=== PATIENT | female | born 1960 | race Two or more races ===

== ENCOUNTER 2021-04-19 01:37 | Inpatient (IN) | payer MEDICAID ==
[~2021-04-19] VITALS: Ht 149.9 cm; Wt 91.2 kg
[~2021-04-19 01:37] MED LIST: ALBUAER3 IN; ALLO100T PO; ATOR20TA PO; CHOL20007 PO; CITA-244 PO; FENO160T8 PO; GABA100C9 PO; HYDR25TA5 PO; INSU1INJ19 SC; LEVO100T3 PO; LOSA-69 PO; METF-370 PO; TRAM50TA2 PO
[2021-04-19] MEDS ORDERED: SODIUM CHLORIDE 0.9% 1,000 ML IV ONE ×2 (03:30→03:45)
[2021-04-19] MEDS ORDERED: NOREPINEPHRINE 8 MG/250ML KIT 250 ML IV ONE (03:42)
[2021-04-19 03:49] LABS: Basophils # (auto) 0.1 10 ^3/uL (0-0.2); Basophils % (auto) 0.4 % (0.0-2.0); Eosinophils # (auto) 0.8 10 ^3/uL (0-0.8); Eosinophils % (auto) 5.1 % (0.0-7.0); Hematocrit 41.3 % (36.0-46.0); Hemoglobin 13.5 g/dL (12.2-16.2); Lymphocytes % (auto) 13.5 % (10.0-50.0); Mean Corpuscular Hemoglobin 30.5 pg (28.0-32.0); Mean Corpuscular Hgb Conc. 32.8 g/dL (32.0-36.0); Mean Corpuscular Volume 92.9 fL (80.0-100.0); Monocytes # (auto) 0.5 10 ^3/uL (0-1.3); Monocytes % (auto) 3.3 % (0.0-12.0); Neutrophils # (auto) 11.5 10 ^3/uL (1.6-8.6); Neutrophils % (auto) 77.7 % (37.0-80.0); Red Blood Cells 4.44 10^6/uL (4.0-5.20); White Blood Cell 14.8 10^3/uL (4.4-10.8)
[2021-04-19] MEDS ORDERED: NOREPINEPHRINE 8 MG/250ML KIT 250 ML IV SCH (04:00)
[2021-04-19] MEDS ORDERED: CEFTRIAXONE SODIUM 2 GM in D5W 5% 50 ML IV ONE (04:00)
[2021-04-19 04:05] LABS: Alanine Aminotransferase 35 U/L (13-56); Albumin 3.3 g/dL (3.4-5.0); Anion Gap 16 (5-15); Aspartate Aminotransferase 30 U/L (15-37); BUN/Creatinine Ratio 15.4; Calcium 10.5 mg/dL (8.5-10.1); Carbon Dioxide 26 mmol/L (21-32); Chloride 91 mmol/L (98-107); GFR African American 10 mL/min; GFR Non-African American 9 mL/min; Glucose 134 mg/dL (74-106); Lipase 298 U/L (73-393); Magnesium 3.1 mg/dL (1.6-2.6); Potassium 3.8 mmol/L (3.5-5.1); Sodium 133 mmol/L (136-145)
[2021-04-19 04:11] LABS: Alkaline Phosphatase 51 U/L (45-117); Bilirubin, Total 0.4 mg/dL (0.2-1.0); Total Protein 7.8 g/dL (6.4-8.2)
[2021-04-19 04:15] LABS: Blood Urea Nitrogen 84 mg/dL (7-18)
[2021-04-19] MEDS ORDERED: VANCOMYCIN 1GM/250ML 250 ML IV ONE ×2 (04:30→11:00)
[2021-04-19] MEDS ORDERED: SODIUM CHLORIDE 0.9% 2,000 ML IV ONE (05:00)
[2021-04-19 05:28] LABS: Urine Bacteria FEW /hpf (None Seen); Urine Blood TRACE /uL (Negative); Urine Hyaline Cast MANY /lpf (0 - 2); Urine Mucus FEW (None Seen); Urine Specific Gravity 1.013 (1.001-1.035); Urine WBC 26 /hpf (0 - 5)
[2021-04-19] MEDS ORDERED: CHOLECALCIFEROL (VITD3) 2,000 UNIT CAP/TAB PO ONE (06:45)
[2021-04-19] MEDS ORDERED: VANCOMYCIN PER PHARMACY 0 MG IV SCH (06:45)
[2021-04-19] MEDS ORDERED: ONDANSETRON HCL 4 MG/2 ML VIAL IV PRN (06:45)
[2021-04-19] MEDS ORDERED: NITROGLYCERIN 0.4 MG SL TAB SL PRN (06:45)
[2021-04-19] MEDS ORDERED: MORPHINE SULFATE INJECTION 2 MG/ML SYRG IV PRN (06:45)
[2021-04-19] MEDS ORDERED: DEXTROSE (50%) 50ML SYRG IV PRN (06:45)
[2021-04-19] MEDS: SODIUM CHLORIDE 0.9% 1,000 ML IV SCH ×2 (07:30→14:45)
[2021-04-19] MEDS: NOREPINEPHRINE 8 MG/250ML KIT 250 ML IV SCH (07:30)
[2021-04-19] MEDS: PIPERACILLIN-TAZOB 2.25GM 50 ML IV SCH ×2 (08:00→16:00)
[2021-04-19 08:53] LABS: Albumin 3.4 g/dL (3.4-5.0); Calcium 10.7 mg/dL (8.5-10.1)
[2021-04-19 08:55] LABS: BUN/Creatinine Ratio 15.8
[2021-04-19 08:57] LABS: Bilirubin, Total 0.5 mg/dL (0.2-1.0); Total Protein 7.8 g/dL (6.4-8.2)
[2021-04-19] MEDS: HEPARIN SODIUM (PORCINE) 5000 UNITS/ML 1ML VIAL SC SCH (09:31)
[2021-04-19] MEDS: CITALOPRAM HYDROBR 20 MG TAB PO SCH (09:37)
[2021-04-19] MEDS: PANTOPRAZOLE 40 MG/10 ML VIAL INJ IV SCH (09:37)
[2021-04-19] MEDS: GABAPENTIN 100 MG CAP PO SCH (09:38)
[2021-04-19] MEDS: InsuLIN REG 1unit/0.01ml Soln (100units/ml) SC SCH ×2 (13:55→18:00)
[2021-04-19] MEDS: ACCU-CHEK COMFORT CURVE STRIP VI SCH ×2 (13:55→18:00)
[2021-04-19] MEDS: SODIUM BICARBONATE 50ML VIAL 50 ML in SOD CHL 0.45% 1,000 ML IV SCH (15:45)
[2021-04-19 17:21] LABS: Protein, Urine 157.5 mg/dL (0.0-11.9)
[2021-04-20] MEDS: PIPERACILLIN-TAZOB 2.25GM 50 ML IV SCH ×3 (00:27→18:18)
[2021-04-20] MEDS: InsuLIN REG 1unit/0.01ml Soln (100units/ml) SC SCH ×4 (00:28→18:27)
[2021-04-20] MEDS: ACCU-CHEK COMFORT CURVE STRIP VI SCH ×4 (00:28→18:25)
[2021-04-20] MEDS: SODIUM BICARBONATE 50ML VIAL 50 ML in SOD CHL 0.45% 1,000 ML IV SCH ×2 (02:15→14:50)
[2021-04-20] MEDS: NOREPINEPHRINE 8 MG/250ML KIT 250 ML IV SCH (05:18)
[2021-04-20 05:35] LABS: Basophils # (auto) 0.1 10 ^3/uL (0-0.2); Basophils % (auto) 0.9 % (0.0-2.0); Eosinophils % (auto) 8.7 % (0.0-7.0); Hematocrit 35.7 % (36.0-46.0); Hemoglobin 11.9 g/dL (12.2-16.2); Lymphocytes # (auto) 3.1 10 ^3/uL (0.4-5.4); Lymphocytes % (auto) 25.7 % (10.0-50.0); Mean Corpuscular Hemoglobin 30.6 pg (28.0-32.0); Mean Corpuscular Hgb Conc. 33.2 g/dL (32.0-36.0); Monocytes # (auto) 0.6 10 ^3/uL (0-1.3); Monocytes % (auto) 5.2 % (0.0-12.0); Neutrophils # (auto) 7.1 10 ^3/uL (1.6-8.6); Neutrophils % (auto) 59.5 % (37.0-80.0); Red Blood Cells 3.88 10^6/uL (4.0-5.20); Red Cell Distribution Width 14.6 % (11.8-14.3); White Blood Cell 11.9 10^3/uL (4.4-10.8)
[2021-04-20 06:00] LABS: Albumin 2.8 g/dL (3.4-5.0); BUN/Creatinine Ratio 19.5; Bilirubin, Total 0.2 mg/dL (0.2-1.0); Calcium 8.5 mg/dL (8.5-10.1); Total Protein 6.3 g/dL (6.4-8.2)
[2021-04-20] MEDS ORDERED: POTASSIUM CHLORIDE 40 MEQ, LIDOCAINE 1% (LOCAL ANESTH.) 4 ML in SODIUM CHL 0.9% 250 ML IV ONE (07:00)
[2021-04-20] MEDS: PANTOPRAZOLE 40 MG/10 ML VIAL INJ IV SCH (10:27)
[2021-04-20] MEDS: CITALOPRAM HYDROBR 20 MG TAB PO SCH (10:27)
[2021-04-20] MEDS: FLORASTOR (S. BOULARDII) 250 MG CAP PO SCH (10:27)
[2021-04-20] MEDS: GABAPENTIN 100 MG CAP PO SCH (10:28)
[2021-04-20] MEDS: HEPARIN SODIUM (PORCINE) 5000 UNITS/ML 1ML VIAL SC SCH (10:28)
[2021-04-20] MEDS ORDERED: VANCOMYCIN 1GM/250ML 250 ML IV ONE (12:00)
[2021-04-20] MEDS ORDERED: SODIUM CHLORIDE 0.9% 2,000 ML IV ONE (18:30)
[2021-04-20] MEDS: traMADol HCL 50 MG TAB PO PRN (19:14)
[2021-04-21] MEDS: ACCU-CHEK COMFORT CURVE STRIP VI SCH ×5 (00:31→23:44)
[2021-04-21] MEDS: SODIUM BICARBONATE 50ML VIAL 50 ML in SOD CHL 0.45% 1,000 ML IV SCH (00:31)
[2021-04-21] MEDS: InsuLIN REG 1unit/0.01ml Soln (100units/ml) SC SCH ×5 (00:37→23:51)
[2021-04-21] MEDS: PIPERACILLIN-TAZOB 2.25GM 50 ML IV SCH ×4 (00:58→23:51)
[2021-04-21] MEDS: PANTOPRAZOLE 40 MG/10 ML VIAL INJ IV SCH (09:38)
[2021-04-21] MEDS: FLORASTOR (S. BOULARDII) 250 MG CAP PO SCH (09:38)
[2021-04-21] MEDS: GABAPENTIN 100 MG CAP PO SCH (09:39)
[2021-04-21] MEDS: CITALOPRAM HYDROBR 20 MG TAB PO SCH (09:39)
[2021-04-21] MEDS: HEPARIN SODIUM (PORCINE) 5000 UNITS/ML 1ML VIAL SC SCH (09:41)
[2021-04-21] MEDS: traMADol HCL 50 MG TAB PO PRN (09:42)
[2021-04-21] MEDS ORDERED: VANCOMYCIN 1GM/250ML 250 ML IV SCH (11:00)
[2021-04-21 12:00] LABS: BUN/Creatinine Ratio 23.2; Calcium 8.6 mg/dL (8.5-10.1); Potassium 3.9 mmol/L (3.5-5.1)
[2021-04-21 13:56] LABS: Basophils # (auto) 0.1 10 ^3/uL (0-0.2); Basophils % (auto) 0.6 % (0.0-2.0); Eosinophils # (auto) 0.7 10 ^3/uL (0-0.8); Eosinophils % (auto) 5.5 % (0.0-7.0); Hematocrit 32.7 % (36.0-46.0); Hemoglobin 10.7 g/dL (12.2-16.2); Lymphocytes # (auto) 1.1 10 ^3/uL (0.4-5.4); Lymphocytes % (auto) 9.4 % (10.0-50.0); Mean Corpuscular Hemoglobin 30.3 pg (28.0-32.0); Mean Corpuscular Hgb Conc. 32.7 g/dL (32.0-36.0); Mean Corpuscular Volume 92.7 fL (80.0-100.0); Monocytes # (auto) 0.6 10 ^3/uL (0-1.3); Monocytes % (auto) 5.1 % (0.0-12.0); Neutrophils # (auto) 9.7 10 ^3/uL (1.6-8.6); Neutrophils % (auto) 79.4 % (37.0-80.0); Red Blood Cells 3.53 10^6/uL (4.0-5.20); Red Cell Distribution Width 14.7 % (11.8-14.3); White Blood Cell 12.3 10^3/uL (4.4-10.8)
[2021-04-21] MEDS: SODIUM CHLORIDE 0.9% 1,000 ML IV SCH (16:37)
[2021-04-21] MEDS: NOREPINEPHRINE 8 MG/250ML KIT 250 ML IV SCH (19:14)
[2021-04-22 00:30] VITALS: BP 108/54
[2021-04-22] MEDS ORDERED: PNEUMOCOCCAL VACC POLYS 25 MCG/0.5 ML VIAL IM ONE (02:45)
[2021-04-22] MEDS ORDERED: INFLUENZA QUAD 2020-2021 0.5 ML SYRG IM ONE (02:45)
[2021-04-22] MEDS: SODIUM CHLORIDE 0.9% 1,000 ML IV SCH ×2 (04:52→08:46)
[2021-04-22 05:00] VITALS: BP 101/51
[2021-04-22] MEDS: InsuLIN REG 1unit/0.01ml Soln (100units/ml) SC SCH ×3 (06:00→18:37)
[2021-04-22] MEDS: ACCU-CHEK COMFORT CURVE STRIP VI SCH ×4 (06:12→23:45)
[2021-04-22] MEDS ORDERED: BACL20TA PO (06:27)
[2021-04-22] MEDS ORDERED: DULO60CA PO (06:29)
[2021-04-22] MEDS: NOREPINEPHRINE 8 MG/250ML KIT 250 ML IV SCH (06:45)
[2021-04-22 08:00] VITALS: BP 108/60
[2021-04-22] MEDS: CITALOPRAM HYDROBR 20 MG TAB PO SCH (08:43)
[2021-04-22] MEDS: PANTOPRAZOLE 40 MG/10 ML VIAL INJ IV SCH (08:43)
[2021-04-22] MEDS: PIPERACILLIN-TAZOB 2.25GM 50 ML IV SCH ×3 (08:43→23:45)
[2021-04-22] MEDS: FLORASTOR (S. BOULARDII) 250 MG CAP PO SCH (08:43)
[2021-04-22] MEDS: GABAPENTIN 100 MG CAP PO SCH (08:44)
[2021-04-22] MEDS: HEPARIN SODIUM (PORCINE) 5000 UNITS/ML 1ML VIAL SC SCH (08:46)
[2021-04-22 11:46] LABS: Potassium 3.3 mmol/L (3.5-5.1)
[2021-04-22 12:00] VITALS: BP 127/51
[2021-04-22 12:26] LABS: Albumin 2.3 g/dL (3.4-5.0); BUN/Creatinine Ratio 15.1; Calcium 8.1 mg/dL (8.5-10.1)
[2021-04-22 12:43] LABS: Bilirubin, Total 0.4 mg/dL (0.2-1.0); Total Protein 5.8 g/dL (6.4-8.2)
[2021-04-22] MEDS ORDERED: LEVO500T31 PO (14:45)
[2021-04-22] MEDS: traMADol HCL 50 MG TAB PO PRN (20:10)
[2021-04-22 22:00] VITALS: BP 139/64
[2021-04-23 05:00] VITALS: BP 111/46
[2021-04-23] MEDS: ACCU-CHEK COMFORT CURVE STRIP VI SCH (05:30)
[2021-04-23] MEDS: InsuLIN REG 1unit/0.01ml Soln (100units/ml) SC SCH ×2 (05:31)
[2021-04-23] MEDS: PIPERACILLIN-TAZOB 2.25GM 50 ML IV SCH (08:00)
[2021-04-23 09:00] VITALS: BP 133/76
[2021-04-23] MEDS: FLORASTOR (S. BOULARDII) 250 MG CAP PO SCH (09:19)
[2021-04-23] MEDS: GABAPENTIN 100 MG CAP PO SCH (09:21)
[2021-04-23] MEDS: CITALOPRAM HYDROBR 20 MG TAB PO SCH (09:21)
[2021-04-23] MEDS: HEPARIN SODIUM (PORCINE) 5000 UNITS/ML 1ML VIAL SC SCH (09:22)
[2021-04-23] MEDS: PANTOPRAZOLE 40 MG/10 ML VIAL INJ IV SCH (09:24)
[2021-04-23 10:11] VITALS: BP 133/76
== END 2021-04-23 11:30 | disposition home health service (06) | DRG 720 ==
LOC: ER 01:37 → TELE 06:32 → TELE-CENTR 04-22 00:41
PROVIDERS: ADMIT Hospitalist; ATTEND Hospitalist
DX: A41.9 Sepsis, unspecified organism (principal); R65.21 Severe sepsis with septic shock; G93.41 Metabolic encephalopathy; N17.9 Acute kidney failure, unspecified; E87.1 Hypo-osmolality and hyponatremia; E11.22 Type 2 diabetes mellitus with diabetic chronic kidney disease; A05.9 Bacterial foodborne intoxication, unspecified; E03.9 Hypothyroidism, unspecified; I95.89 Other hypotension; E11.65 Type 2 diabetes mellitus with hyperglycemia; E86.1 Hypovolemia; K31.84 Gastroparesis; E66.9 Obesity, unspecified; E78.5 Hyperlipidemia, unspecified; E86.0 Dehydration; F32.9 Major depressive disorder, single episode, unspecified; F41.9 Anxiety disorder, unspecified; J98.11 Atelectasis; K21.9 Gastro-esophageal reflux disease without esophagitis; K76.0 Fatty (change of) liver, not elsewhere classified; N39.0 Urinary tract infection, site not specified; Z20.822 Contact with and (suspected) exposure to COVID-19; I12.9 Hypertensive chronic kidney disease with stage 1 through stage 4 chronic kidney disease, or unspecified chronic kidney disease; E11.43 Type 2 diabetes mellitus with diabetic autonomic (poly)neuropathy; F17.210 Nicotine dependence, cigarettes, uncomplicated; N18.4 Chronic kidney disease, stage 4 (severe); K52.9 Noninfective gastroenteritis and colitis, unspecified; Z88.5 Allergy status to narcotic agent; Z68.41 Body mass index [BMI] 40.0-44.9, adult; Z79.899 Other long term (current) drug therapy; Z90.49 Acquired absence of other specified parts of digestive tract; Z98.51 Tubal ligation status
CPT/HCPCS: 36415; 71045; 73700; 74176; 76775; 80048; 80053; 80202; 81001; 82270; 82306; 82565; 82570; 82962; 83036; 83605; 83690; 83735; 83880; 83935; 84100; 84156; 84300; 84484; 85025; 85048; 87040; 87086; 87426; 87493; 93005; 93970; 96365; 96366; 96375; 99291; C9113; G0378; J0696; J1815; J2001; J2543; J7060